=== PATIENT | male | born 1975 | race Caucasian/White ===

== ENCOUNTER 2017-03-06 16:16 | Emergency (ER) | payer SELFPAY ==
[2017-03-06 19:00] LABS: Hematocrit 46.9 % (35.5-45.6); Hemoglobin 16.3 gm/dl (11.8-15.2); Mean Corpuscular HGB Conc 35 % (32-34); Mean Corpuscular Hemoglobin 32 pg (28-32); Mean Corpuscular Volume 91 fl (84-94); Platelet Count 195 K/mm3 (140-440); Red Blood Count 5.14 M/mm3 (3.65-5.03); White Blood Count 17.9 K/mm3 (4.5-11.0)
[2017-03-06 19:21] LABS: BUN/Creatinine Ratio 13; Blood Urea Nitrogen 10 mg/dL (9-20); Calcium 9.9 mg/dL (8.4-10.2); Carbon Dioxide 27 mmol/L (22-30); Creatine Kinase 206 units/L (55-170); Glucose 112 mg/dL (75-100)
[2017-03-06 19:22] LABS: Anion Gap 20 mmol/L; Chloride 99.7 mmol/L (98-107); Potassium 4.6 mmol/L (3.6-5.0); Sodium 142 mmol/L (137-145)
--- NOTE | 2017-03-06 19:44 | Emergency Department Report ---
ED General Adult HPI - General Chief complaint: Seizure Stated complaint: SEIZURE Time Seen by Provider: 03/06/17 18:05 Source: patient, EMS (ems notes not available at time of chart dictation), RN notes reviewed Mode of arrival: Stretcher Limitations: No Limitations - History of Present Illness Initial comments: This is a 42-year-old male who was previously unknown to this provider. Patient denies chronic medical conditions, patient was at the dentist today, having a procedure done, was giving medications, including 2% lidocaine with epinephrine, and benzocaine, shortly thereafter, the patient had a generalized tonic-clonic event, lasting 5 minutes. It has since resolved, the patient was sent here for medical clearance. The patient denies headache, neck pain, chest pain, abdominal pain and shortness of breath, he reports having had dental anesthesia in the past without complications, and has no complaints at this time. He denies drug use as well. -: Sudden Severity scale (0 -10): 0 Consistency: now resolved Improves with: none Worsens with: none Associated Symptoms: denies other symptoms - Related Data Allergies Allergy/AdvReac Type Severity Reaction Status Date / Time No Known Allergies Allergy Unverified 03/06/17 17:49 ED Review of Systems ROS: Stated complaint: SEIZURE Other details as noted in HPI Constitutional: denies: fever Eyes: denies: vision change ENT: denies: epistaxis Respiratory: denies: cough, shortness of breath Cardiovascular: denies: chest pain Gastrointestinal: denies: abdominal pain Genitourinary: denies: urgency Skin: denies: lesions Neurological: denies: headache, weakness Psychiatric: denies: anxiety ED Past Medical Hx - Past Medical History Previous Medical History?: No - Surgical History Past Surgical History?: No - Social History Smoking Status: Never Smoker Substance Use Type: None ED Physical Exam - General Limitations: No Limitations General appearance: alert, in no apparent distress - Head Head exam: Present: atraumatic, normocephalic - Eye Eye exam: Present: normal appearance, PERRL, EOMI, other (visual acuity intact to finger counting, color perception, reading at a close distance). Absent: nystagmus - ENT ENT exam: Present: normal exam, normal orophraynx, mucous membranes moist, normal external ear exam - Neck Neck exam: Present: normal inspection, full ROM. Absent: tenderness, meningismus - Respiratory Respiratory exam: Present: normal lung sounds bilaterally. Absent: respiratory distress, wheezes, rales, rhonchi, stridor, chest wall tenderness, accessory muscle use, decreased breath sounds, prolonged expiratory - Cardiovascular Cardiovascular Exam: Present: regular rate, normal rhythm, normal heart sounds. Absent: bradycardia, tachycardia, irregular rhythm, systolic murmur, diastolic murmur, rubs, gallop - GI/Abdominal GI/Abdominal exam: Present: soft, normal bowel sounds. Absent: distended, tenderness, guarding, rebound, rigid, pulsatile mass - Rectal Rectal exam: Present: deferred - Extremities Exam Extremities exam: Present: normal inspection, full ROM, normal capillary refill. Absent: pedal edema, joint swelling, calf tenderness - Back Exam Back exam: Present: normal inspection, full ROM. Absent: tenderness, CVA tenderness (R), CVA tenderness (L), muscle spasm, paraspinal tenderness, vertebral tenderness - Neurological Exam Neurological exam: Present: alert, oriented X3, normal gait, other (Extraocular movements intact. Tongue midline. No facial droop. Facial sensation intact to light touch in the V1, V2, V3 distribution bilaterally. 5 and 5 strength in 4 extremities.. Sensation is intact to light touch in 4 extremities.). Absent : motor sensory deficit - Psychiatric Psychiatric exam: Present: normal affect, normal mood - Skin Skin exam: Present: warm, dry, intact, normal color. Absent: rash ED Course Vital Signs 03/06/17 03/06/17 03/06/17 18:38 18:39 19:30 Temperature Pulse Rate 82 78 Respiratory 14 12 18 Rate Blood Pressure 139/88 117/73 [Right] O2 Sat by Pulse 99 100 97 Oximetry 03/06/17 03/06/17 03/06/17 19:46 20:00 20:30 Temperature 98.1 F Pulse Rate 72 79 Respiratory 74 H 16 18 Rate Blood Pressure 117/64 120/75 128/82 [Right] O2 Sat by Pulse 100 98 97 Oximetry 03/06/17 21:00 Temperature Pulse Rate 83 Respiratory 18 Rate Blood Pressure 127/81 [Right] O2 Sat by Pulse 99 Oximetry ED Medical Decision Making - Lab Data Result diagrams: 03/06/17 18:38 03/06/17 18:38 Vital Signs 03/06/17 03/06/17 03/06/17 18:38 18:39 19:46 Temperature 98.1 F Pulse Rate 82 Respiratory 14 12 74 H Rate Blood Pressure 139/88 117/64 [Right] O2 Sat by Pulse 99 100 100 Oximetry Labs 03/06/17 03/06/17 03/06/17 18:38 18:38 Unknown WBC 17.9 H RBC 5.14 H Hgb 16.3 H Hct 46.9 H MCV 91 MCH 32 MCHC 35 H RDW 13.0 L Plt Count 195 ABG pH 7.408 ABG pCO2 40.6 ABG pO2 81.0 ABG HCO3 25.0 ABG O2 Saturation 96.4 ABG O2 Content 21.4 ABG Base Excess 0.4 ABG Hemoglobin 16.1 ABG Carboxyhemoglobin 1.2 ABG Methemoglobin 0.6 Oxyhemoglobin 94.7 L FiO2 44 Sodium 142 Potassium 4.6 Chloride 99.7 Carbon Dioxide 27 Anion Gap 20 BUN 10 Creatinine 0.8 Estimated GFR > 60 BUN/Creatinine Ratio 13 Glucose 112 H Calcium 9.9 Total Creatine Kinase 206 H - EKG Data -: EKG Interpreted by Me - EKG Data When compared to previous EKG there are: previous EKG unavailable 03/06/17 20:51 Normal sinus, 68 bpm, normal intervals, normal axis, not morphologically consistent with STEMI - Medical Decision Making Differential diagnosis: Medication side effect, convulsing, seizure, electrolyte derangement Assessment and plan: 42-year-old male with nonspecific convulsive event after exposure to dental anesthesia, convulsive event most likely related to exposure to dental anesthesia. Patient is alert and oriented 3, clinically sober, walks with a steady gait, has a GCS of 15, with an NIH score of 0. Has no headache, neck pain, chest pain , abdominal pain or shortness of breath. Patient observed in the ER for a prolonged period of time without recurrent convulsive event, case was discussed with the [facility], who recommended tested for methemoglobinemia, and co- oximetry turned out to be normal. Specifically, the methemoglobin level on co oximetry testing was within acceptable limits. Patient will be discharged at this time, he is counseled to avoid exposure to lidocaine and benzocaine, and to follow-up with an outpatient neurologist for clearance to drive motor vehicles. He will be discharged at this time, return precautions are reviewed. Leukocytosis is appreciated, this is a nonspecific test, the patient is quite well-appearing, with no neck pain or neck stiffness, therefore think meningitis is very very unlikely. I don't believe the patient requires emergent imaging of the brain given his history and physical, I did discuss this with the patient, and he declined a CT scan out of concern for radiation, which I think is reasonable. The patient and I have made this decision together, and I believe that this is safe. The patient should follow- up with an outpatient neurologist. Return precautions are reviewed. Critical care attestation.: If time is entered above; I have spent that time in minutes in the direct care of this critically ill patient, excluding procedure time. ED Disposition Clinical Impression: History of convulsions Disposition: DC- TO HOME OR SELFCARE Is pt being admited?: No Does the pt Need Aspirin: No Condition: Stable Instructions: Recurrent Seizures Adult (ED) Additional Instructions: I recommend that the patient not drive or operate motor vehicles for the next 6 months, unless cleared by either a neurologist or primary care doctor. Follow up with any of the listed neurology specialists within the next 7-10 days. In the future, avoid exposure to lidocaine with epinephrine and benzocaine. Return to the ER right away with few pain, worsened pain, migration of pain, fevers, chills, lethargy, irritability, projectile vomiting, change in mental status, inability to tolerate liquid feeds. Referrals: TALITA ALCANTARA MD [Primary Care Provider] - 3-5 Days BROOK AVINA MD [Referring] - 3-5 Days BRANDON RAYMOND MD [Staff Physician] - 3-5 Days JOLENE SEYMOUR MD [Staff Physician] - 3-5 Days STACIE RYAN MD [Staff Physician] - 3-5 Days
[2017-03-06 20:31] LABS: ABG Base Excess 0.4 mmol/L (-2.0-3.0); ABG Oxygen Saturation 96.4 % (95.0-99.0); ABG PCO2 40.6 mm Hg; ABG PH 7.408 pH Units (7.350-7.450)
[2017-03-06 20:52] LABS: ISTAT Base Excess 2; ISTAT DEVICE 0; ISTAT HCO3 26.7; ISTAT PCO2 40.7 (35-45); ISTAT PH 7.425 (7.35-7.45); ISTAT PO2 79 (80-105); ISTAT SO2 96; ISTAT TCO2 28
[2017-03-06 22:16] VITALS: BP 127/81
== END 2017-03-06 21:20 | disposition home or self-care (01) ==
LOC: ED 16:16
DX: R56.9 Unspecified convulsions (principal)
CPT/HCPCS: 36415; 80048; 82550; 82803; 85027; 93005; 93010; 99284